=== PATIENT | female | born 1950 | race Caucasian/White ===

== ENCOUNTER 2023-10-29 07:15 | Day surgery (SDC) | payer MEDICARE, OTHER ==
[~2023-10-29] VITALS: Ht 160 cm; Wt 100.2 kg
[2023-10-29] MEDS: BSS IRRIG/VANCO(10MG)/TOBRA(5MG)/EPINEPH(1:1000-0.5CC)500ML BAG-ORONLY As Ordered ONE (07:05)
[~2023-10-29 07:15] MED LIST: BUPR-597 PO; LISI10TA22 PO; OMEGCAP9 PO; PHENYLEPHRINE 10% OPHTH SOL 5ML OS PRN; PRES1CHW PO; ROSU10TA61 PO; TIMO0.5S20; XALA0.007
[2023-10-29] MEDS: OFLOXACIN 0.3 % (OCUFLOX) OPTH SOL 5ML OS ONE (07:45)
[2023-10-29] MEDS: LIDOCAINE 3.5 % 1ML OPHTH TOPICAL GEL OU ONE (07:46)
[2023-10-29] MEDS: TROPICAMIDE 1% OPHTH SOLN 15ML OS SCH (07:46)
[2023-10-29] MEDS: PHENYLEPHRINE 2.5% OPHTH SOL 2ML OS SCH (07:46)
[2023-10-29] MEDS: ATROPINE SULFATE 1% OPHTH SOLN 2ML BTL OS SCH (07:46)
[2023-10-29] MEDS ORDERED: fentaNYL 100 MCG/2 ML INJECTION As Ordered ONE (08:17)
[2023-10-29] MEDS ORDERED: MIDAZOLAM INJ 2MG/2ML VIAL As Ordered ONE (08:17)
[2023-10-29] MEDS: LIDOCAINE 1% SDV 5ML VIAL As Ordered ONE (08:41)
[2023-10-29] MEDS: CEFUROXIME 1MG/0.1ML INTRACAMERAL INJ As Ordered ONE (08:41)
[2023-10-29 09:00] VITALS: BP 136/61; TEMP 96.4; O2SAT 98
== END 2023-10-29 09:15 | disposition home or self-care (01) ==
LOC: M SDC 07:15
PROVIDERS: ATTEND Ophthalmology
DX: H25.12 Age-related nuclear cataract, left eye (principal); H40.1122 Primary open-angle glaucoma, left eye, moderate stage; H35.3122 Nonexudative age-related macular degeneration, left eye, intermediate dry stage; I10 Essential (primary) hypertension; E78.00 Pure hypercholesterolemia, unspecified; Z79.899 Other long term (current) drug therapy; Z88.8 Allergy status to other drugs, medicaments and biological substances; E66.01 Morbid (severe) obesity due to excess calories
CPT/HCPCS: 66991; C1783; J0697; J2250; J3010; V2788

== ENCOUNTER 2023-11-26 07:17 | Day surgery (SDC) | payer MEDICARE ==
[~2023-11-26] VITALS: Ht 160 cm; Wt 99.8 kg
[~2023-11-26 07:17] MED LIST changes: +MIDAZOLAM INJ 2MG/2ML VIAL As Ordered ONE; +PHENYLEPHRINE 10% OPHTH SOL 5ML OD PRN; -PHENYLEPHRINE 10% OPHTH SOL 5ML OS PRN; +PREDOPD OS; +REFR0.5D8 OU; -TIMO0.5S20; +TIMO0.5S20 OU; -XALA0.007; +XALA0.007 OU; +fentaNYL 100 MCG/2 ML INJECTION As Ordered ONE
[2023-11-26] MEDS: LIDOCAINE 3.5 % 1ML OPHTH TOPICAL GEL OU ONE (08:01)
[2023-11-26] MEDS: OFLOXACIN 0.3 % (OCUFLOX) OPTH SOL 5ML OD ONE (08:01)
[2023-11-26] MEDS: TROPICAMIDE 1% OPHTH SOLN 15ML OD SCH (08:02)
[2023-11-26] MEDS: ATROPINE SULFATE 1% OPHTH SOLN 2ML BTL OD SCH (08:02)
[2023-11-26] MEDS: PHENYLEPHRINE 2.5% OPHTH SOL 2ML OD SCH (08:02)
[2023-11-26] MEDS: LIDOCAINE 1% SDV 5ML VIAL As Ordered ONE (09:01)
[2023-11-26] MEDS: CEFUROXIME 1MG/0.1ML INTRACAMERAL INJ As Ordered ONE (09:02)
[2023-11-26] MEDS: BSS IRRIG/VANCO(10MG)/TOBRA(5MG)/EPINEPH(1:1000-0.5CC)500ML BAG-ORONLY As Ordered ONE (09:02)
[2023-11-26 09:20] VITALS: BP 132/80; TEMP 97.8; O2SAT 97
== END 2023-11-26 09:34 | disposition home or self-care (01) ==
LOC: M SDC 07:17
PROVIDERS: ATTEND Ophthalmology
DX: H40.10X2 Unspecified open-angle glaucoma, moderate stage (principal); H25.11 Age-related nuclear cataract, right eye; H35.3120 Nonexudative age-related macular degeneration, left eye, stage unspecified; I10 Essential (primary) hypertension; E78.00 Pure hypercholesterolemia, unspecified; Z79.899 Other long term (current) drug therapy; F41.9 Anxiety disorder, unspecified; Z88.8 Allergy status to other drugs, medicaments and biological substances
CPT/HCPCS: 66991; C1783; J0697; J2250; J3010; V2788